=== PATIENT | male | born 1970 | race Hispanic/Latino ===

== ENCOUNTER 2019-01-19 12:05 | Emergency (ER) | payer SELFPAY ==
[2019-01-19] MEDS ORDERED: SODIUM CHLORIDE 0.9% 1000ML 1,000 ML IV ONE (12:44)
[2019-01-19] MEDS ORDERED: PROCHLORPERAZINE EDISYLATE 10 MG/2 ML VIAL ONE (12:45)
[2019-01-19] MEDS ORDERED: KETOROLAC TROMETHAMINE 30MG/ML ONE (12:45)
[2019-01-19 13:06] LABS: BASOPHILS % (AUTO) 0.7 % (0.0-5.0); EOSINOPHILS % (AUTO) 1.3 % (0.0-8.0); HEMATOCRIT 47.9 % (42-54); LYMPHOCYTES % (AUTO) 25.7 % (21.0-51.0); MEAN CORPUSCULAR HEMOGLOBIN 29.9 pg (27.0-33.0); MEAN CORPUSCULAR HGB CONC 34.1 g/dL (32.0-36.0); MEAN CORPUSCULAR VOLUME 87.8 fL (79-99); MONOCYTES % (AUTO) 7.7 % (3.0-13.0); NEUTROPHILS % (AUTO) 64.6 % (40.0-77.0); NUCLEATED RED BLOOD CELLS 0.1 % (0.0-0.19); PLATELET COUNT (AUTO) 285 K/uL (130-400); RED BLOOD CELL COUNT(AUTO) 5.45 MIL/uL (4.50-6.20); RED CELL DISTRIBUTION WIDTH 12.1 % (11.0-15.5); WHITE BLOOD COUNT (AUTO) 6.9 K/uL (4.8-10.8)
[2019-01-19 13:10] LABS: ABG OXYGEN SATURATION 49.2 % (95.0-99.0); BASE EXCESS,VENOUS BLOOD GAS -1.5 (-2.0-3.0); HCO3,VENOUS BLOOD GAS 24.7 (21.0-28.0); PCO2,VENOUS BLOOD GAS 47 (35-48); PH,VENOUS BLOOD GAS 7.339 (7.350-7.450)
[2019-01-19 13:14] LABS: POTASSIUM 4.2 mmol/L (3.5-5.1)
[2019-01-19 13:19] LABS: ALBUMIN 3.9 g/dL (3.5-5.0); BILIRUBIN,DIRECT 0.2 mg/dL (0.0-0.3); BILIRUBIN,TOTAL 0.5 mg/dL (0.2-1.0); TOTAL PROTEIN, SERUM 8.3 g/dL (6.0-8.3)
== END 2019-01-19 13:57 | disposition home or self-care (01) ==
LOC: EDH 12:05
DX: E11.65 Type 2 diabetes mellitus with hyperglycemia (principal); R51 Headache; Z72.0 Tobacco use
CPT/HCPCS: 36415; 36600; 80048; 80076; 82803; 82948; 85025; 96361; 96374; 96375; 99283; J0780; J1885; J7030